=== PATIENT | female | born 1965 | race Caucasian/White ===

== ENCOUNTER 2017-06-29 21:16 | Emergency (ER) | payer MEDICAID ==
[~2017-06-29] VITALS: Ht 157.5 cm; Wt 76.2 kg
[~2017-06-29 21:16] MED LIST: INSU100C5 IJ; INSU100V9 SQ; RISP1TAB27 PO; [UNRECOGNIZED DRUG - CODE] PO
[2017-06-29 21:32] VITALS: BP_SYST 129
[2017-06-29] MEDS: NACL 0.9% 1,000 ML IV ONE (23:53)
[2017-06-29] MEDS: DIPHENHYDRAMINE INJ 50 MG/ML VIAL IVP ONE (23:53)
[2017-06-29] MEDS: PROCHLORPERAZINE EDISYLATE 10 MG/2 ML VIAL IVP ONE (23:54)
[2017-06-29 23:58] LABS: BASOPHILS % (AUTO) 0.5 % (0.0-2.0); EOSINOPHILS # (AUTO) 0.1 K/uL (0.0-0.4); EOSINOPHILS % (AUTO) 0.8 % (0.0-4.0); HEMATOCRIT 45.7 % (36-48); HEMOGLOBIN 14.4 g/dL (12.0-16.0); LYMPHOCYTES # (AUTO) 2.8 K/uL (1.0-5.5); LYMPHOCYTES % (AUTO) 29.8 % (20.5-51.5); MEAN CORPUSCULAR HEMOGLOBIN 28 pg (27-31); MEAN CORPUSCULAR HGB CONC 32 % (32-36); MEAN CORPUSCULAR VOLUME 87 fL (79.0-98.0); MONOCYTES # (AUTO) 0.4 K/uL (0.0-1.0); MONOCYTES % (AUTO) 4.4 % (1.7-9.3); NEUTROPHILS % (AUTO) 64.5 % (40.0-70.0); PLATELET COUNT (AUTO) 212 K/uL (130-430); RED BLOOD CELL COUNT(AUTO) 5.24 MIL/uL (4.2-6.2); RED CELL DISTRIBUTION WIDTH 12.6 % (9.0-15.0); WHITE BLOOD COUNT (AUTO) 9.3 K/uL (4.8-10.8)
[2017-06-30 00:14] LABS: ANION GAP 5 (5-15); CALCIUM 9.5 mg/dL (8.4-11.0); CHLORIDE 102 mmol/L (98-107); CREATININE 0.72 mg/dL (0.55-1.30); GLUCOSE 219 mg/dL (70-99); POTASSIUM 3.8 mmol/L (3.5-5.1); SODIUM SERUM 134 mmol/L (136-145); UREA NITROGEN, BLOOD 9 mg/dL (8-21)
[2017-06-30 00:18] LABS: ALANINE AMINOTRANSFERASE 33 U/L (12-78); ALBUMIN 3.5 g/dL (3.4-4.8); ASPARTATE AMINOTRANSFERASE 17 U/L (10-37); TOTAL BILIRUBIN 0.2 mg/dL (0.0-1.0)
[2017-06-30 00:22] LABS: GFR AFRICAN AMERICAN 110 mL/min (>90)
[2017-06-30 00:27] LABS: ACETONE, SERUM NEGATIVE (NEGATIVE)
[2017-06-30 01:30] VITALS: BP_SYST 122
== END 2017-06-30 01:30 | disposition home or self-care (01) ==
LOC: SED 21:16
DX: R51 Headache (principal); J45.909 Unspecified asthma, uncomplicated; E11.9 Type 2 diabetes mellitus without complications; Z88.0 Allergy status to penicillin
CPT/HCPCS: 36415; 70450; 80053; 82009; 82962; 85025; 96361; 96374; 96375; 99285; J0780; J1200; J7030

== ENCOUNTER 2019-01-28 20:51 | Emergency (ER) | payer MEDICAID ==
[~2019-01-28] VITALS: Ht 162.6 cm; Wt 83.0 kg
[2019-01-28 21:10] VITALS: BP_SYST 164
--- NOTE | 2019-01-28 21:45 | NUR ---
Patient to ER bed 06 to gown for evaluation. Side rails up.
--- NOTE | 2019-01-28 21:50 | NUR ---
ER at bedside examining patient.
--- NOTE | 2019-01-28 21:50 | NUR ---
PT IS AAOX4 AND AMBULATORY. PT IS PRIMARILY LIBYAN SPEAKING BUT CAN UNDERSTAND ICELANDIC. PER PT AND DAUGHTER WHO IS AT BEDSIDE PT HAS BEEN EXPERIERNCING ABD PAINX1 WEEK. PT HAS ALSO BEEN EXPERIENCING CONSTIPATION AND BLOATING AND THOUGHT THAT HER ABD PAIN WAS DUE TO HER CONSTIPATION. PT HAS UNDERGONE NO RELIEF AND NOTICED SWELLING TO HER HANDS. PT +NAUSEA. PT STATES PAIN 10/10 AT THIS TIME. WILL CONTINUE TO MONITOR.
--- NOTE | 2019-01-28 22:00 | NUR ---
# 20 gauge angiocath placed to LFA. Use of asceptic technique. Opsite placed over site. Blood return noted. Blood for lab drawn from site. Flushed with 10 cc of normal saline. No evidence of infiltration noted. Patient tolerated well.
[2019-01-28] MEDS ORDERED: KETOROLAC TROMETHAMINE 30 MG VIAL IM ONE (22:15)
[2019-01-28 22:25] LABS: BILIRUBIN,URINE NEGATIVE (NEGATIVE); BLOOD, URINE 2+ (NEGATIVE); CLARITY/URINE CLEAR (CLEAR); COLOR,URINE YELLOW (YELLOW); GLUCOSE,URINE 2+ (NEGATIVE); KETONES,URINE NEGATIVE (NEGATIVE); LEUKOCYTE ESTERASE ,URINE NEGATIVE (NEGATIVE); NITRITE, URINE NEGATIVE (NEGATIVE); PH,URINE 6.5 (5.0-8.0); PROTEIN URINE 1+ (NEGATIVE); UROBILINOGEN,URINE 0.2 (0.2-1.0)
[2019-01-28 22:31] LABS: BASOPHILS % (AUTO) 0.5 % (0.0-2.0); EOSINOPHILS # (AUTO) 0.2 K/uL (0.0-0.4); EOSINOPHILS % (AUTO) 1.7 % (0.0-4.0); HEMATOCRIT 35.1 % (36-48); HEMOGLOBIN 11.8 g/dL (12.0-16.0); LYMPHOCYTES # (AUTO) 2.3 K/uL (1.0-5.5); LYMPHOCYTES % (AUTO) 24.8 % (20.5-51.5); MEAN CORPUSCULAR HEMOGLOBIN 29 pg (27-31); MEAN CORPUSCULAR HGB CONC 34 % (32-36); MEAN CORPUSCULAR VOLUME 86 fL (79.0-98.0); MONOCYTES # (AUTO) 0.6 K/uL (0.0-1.0); NEUTROPHILS # (AUTO) 6.2 K/uL (1.8-7.7); PLATELET COUNT (AUTO) 251 K/uL (130-430); RED BLOOD CELL COUNT(AUTO) 4.09 MIL/uL (4.2-6.2); RED CELL DISTRIBUTION WIDTH 13.4 % (9.0-15.0); WHITE BLOOD COUNT (AUTO) 9.2 K/uL (4.8-10.8)
[2019-01-28 22:35] LABS: WBC,URINE 0-3 /HPF (0-3)
[2019-01-28 22:36] LABS: BACTERIA,URINE FEW /HPF (None Seen)
[2019-01-28 22:37] LABS: MUCUS,URINE None Seen /LPF (None Seen)
[2019-01-28 22:42] LABS: CALCIUM 9.2 mg/dL (8.4-11.0); CREATININE 1.04 mg/dL (0.55-1.30); POTASSIUM 3.7 mmol/L (3.5-5.1)
[2019-01-28] MEDS ORDERED: KETOROLAC TROMETHAMINE 60 MG/2 ML VIAL IM ONE (22:45)
[2019-01-28] MEDS ORDERED: NACL 0.9% 1,000 ML IV ONE (22:45)
[2019-01-28] MEDS ORDERED: ONDANSETRON HCL 4 MG/2 ML VIAL IVP ONE (22:45)
[2019-01-28 22:47] LABS: ALBUMIN 3.1 g/dL (3.4-4.8); TOTAL BILIRUBIN 0.3 mg/dL (0.0-1.0)
--- NOTE | 2019-01-28 22:50 | NUR ---
30 mg Toradol given IVP per MD orders at this time. No 30 mg Torodol available at this time, 60 mg pulled and only 30 mg administered per MD orders. Will continue to monitor pt.
--- NOTE | 2019-01-28 22:53 | NUR ---
PT TO CT VIA [facility] ACCOMPANIED BY GUITAR TEACHER.
--- NOTE | 2019-01-28 23:00 | NUR ---
PT RETURNED FROM CT VIA [facility] IN STABLE CONDITION.
--- NOTE | 2019-01-28 23:50 | NUR ---
PT RESTING COMFORTABLY IN BED WITH EYES CLOSED. BREATHING IS EVEN AND UNLABORED. FAMILY REMAINS AT BEDSIDE. WILL CONTINUE TO MONITOR PT.
[2019-01-29] MEDS ORDERED: MAG HYDROX/AL HYDROX/SIMETH 30 ML, DICYCLOMINE HCL 20 MG, LIDOCAINE VISCOUS 2% 15ML (PO... PO ONE ×3 (00:45)
[2019-01-29 01:21] VITALS: BP_SYST 159
--- NOTE | 2019-01-29 01:21 | NUR ---
Patient given written and verbal discharge instructions and verbalizes understanding. ER MD discussed with patient the results and treatment provided. Patient in stable condition. ID arm band removed. IV catheter removed intact and dressing applied, no active bleeding. Rx of ZOFRAN, PRILOSEC, BENTYL given. Patient educated on pain management and to follow up with PMD. Pain Scale 0/10. Opportunity for questions provided and answered. Medication side effect fact sheet provided.
== END 2019-01-29 01:21 | disposition home or self-care (01) ==
LOC: SED 20:51
DX: K27.9 Peptic ulcer, site unspecified, unspecified as acute or chronic, without hemorrhage or perforation (principal); R16.0 Hepatomegaly, not elsewhere classified; J45.909 Unspecified asthma, uncomplicated; E11.9 Type 2 diabetes mellitus without complications; Z90.49 Acquired absence of other specified parts of digestive tract; Z90.89 Acquired absence of other organs; Z98.51 Tubal ligation status; Z88.0 Allergy status to penicillin; Z79.899 Other long term (current) drug therapy
CPT/HCPCS: 36415; 74176; 80053; 81000; 83690; 85025; 96374; 96375; 99284; J1885; J2001; J2405; J7030

== ENCOUNTER 2019-04-10 23:40 | Emergency (ER) | payer MEDICAID ==
[~2019-04-10] VITALS: Ht 162.6 cm; Wt 86.2 kg
[2019-04-10 23:58] VITALS: BP_SYST 165
--- NOTE | 2019-04-10 23:58 | NUR ---
Patient to ER bed 06 to gown for evaluation. Side rails up. Report given to ISABELLA Olivas
--- NOTE | 2019-04-11 00:04 | NUR ---
Patient brought in with daughter of lower back pain radiating to shoulders status post slip and fall 1 weeks ago. Patient ambulated to bedside with minimal assistance. Patient has history of DM2 and schizophrenia. Pain 8/. No other complaints/injuries per patient or as noted.
--- NOTE | 2019-04-11 00:19 | NUR ---
ER Dr. Manzano at bedside examining patient.
[2019-04-11] MEDS ORDERED: MORPHINE 2 MG/ML INJ. SYRINGE IM ONE (00:30)
[2019-04-11 01:10] VITALS: BP_SYST 132
--- NOTE | 2019-04-11 01:10 | NUR ---
Patient given written and verbal discharge instructions and verbalizes understanding. ER MD discussed with patient the results and treatment provided. Patient in stable condition. ID arm band removed. Rx of Motrin, Tramadol, and Robaxin given. Patient educated on pain management and to follow up with PMD. Pain Scale 2/10. Opportunity for questions provided and answered. Medication side effect fact sheet provided.
== END 2019-04-11 01:10 | disposition home or self-care (01) ==
LOC: SED 23:40
DX: S22.088A Other fracture of T11-T12 vertebra, initial encounter for closed fracture (principal); R03.0 Elevated blood-pressure reading, without diagnosis of hypertension; J45.909 Unspecified asthma, uncomplicated; E11.9 Type 2 diabetes mellitus without complications; Z90.49 Acquired absence of other specified parts of digestive tract; Z90.89 Acquired absence of other organs; Z90.710 Acquired absence of both cervix and uterus; Z88.0 Allergy status to penicillin; Z79.899 Other long term (current) drug therapy; W01.0XXA Fall on same level from slipping, tripping and stumbling without subsequent striking against object, initial encounter; Y93.89 Activity, other specified; Y92.89 Other specified places as the place of occurrence of the external cause; Y99.8 Other external cause status
CPT/HCPCS: 72100; 81025; 96372; 99283; J2270

== ENCOUNTER 2019-06-15 13:41 | Inpatient (IN) | payer MEDICAID ==
[~2019-06-15] VITALS: Ht 162.6 cm; Wt 90.3 kg
[2019-06-15 13:45] VITALS: BP_SYST 173
[2019-06-15] MEDS ORDERED: INSULIN REGULAR, HUMAN 10 UNITS/0.1 ML INJ SUBCUT ONE (14:00)
[2019-06-15 14:45] LABS: ANION GAP 4 (5-15); CALCIUM 9.4 mg/dL (8.4-11.0); CHLORIDE 93 mmol/L (98-107); CREATININE 1.26 mg/dL (0.55-1.30); POTASSIUM 4.5 mmol/L (3.5-5.1); SODIUM SERUM 128 mmol/L (136-145); UREA NITROGEN, BLOOD 12 mg/dL (8-21)
[2019-06-15 14:51] LABS: ALANINE AMINOTRANSFERASE 41 U/L (12-78); ALBUMIN 3.3 g/dL (3.4-4.8); ASPARTATE AMINOTRANSFERASE 19 U/L (10-37); BASOPHILS % (AUTO) 0.4 % (0.0-2.0); EOSINOPHILS # (AUTO) 0.1 K/uL (0.0-0.4); EOSINOPHILS % (AUTO) 0.7 % (0.0-4.0); HEMATOCRIT 35.9 % (36-48); HEMOGLOBIN 12.4 g/dL (12.0-16.0); LYMPHOCYTES # (AUTO) 1.4 K/uL (1.0-5.5); LYMPHOCYTES % (AUTO) 15.5 % (20.5-51.5); MEAN CORPUSCULAR HEMOGLOBIN 30 pg (27-31); MEAN CORPUSCULAR HGB CONC 34 % (32-36); MEAN CORPUSCULAR VOLUME 86 fL (79.0-98.0); MONOCYTES # (AUTO) 0.5 K/uL (0.0-1.0); MONOCYTES % (AUTO) 4.9 % (1.7-9.3); NEUTROPHILS # (AUTO) 7.3 K/uL (1.8-7.7); NEUTROPHILS % (AUTO) 78.5 % (40.0-70.0); PLATELET COUNT (AUTO) 191 K/uL (130-430); TOTAL BILIRUBIN 0.4 mg/dL (0.0-1.0); WHITE BLOOD COUNT (AUTO) 9.3 K/uL (4.8-10.8)
[2019-06-15 14:52] LABS: PROTHROMBIN TIME 9.9 SECS (9.5-12.5)
[2019-06-15 14:58] LABS: GFR AFRICAN AMERICAN 57 mL/min (>90); GLUCOSE 444 mg/dL (70-99)
[2019-06-15 15:42] LABS: ACETONE, SERUM NEGATIVE (NEGATIVE)
[2019-06-15] MEDS ORDERED: ASPIRIN 325 MG TABLET PO ONE (16:45)
[2019-06-15] MEDS ORDERED: HYDROcodone/ACETAMIN 7.5-325 MG TAB PO ONE (17:45)
[2019-06-15 18:30] VITALS: BP_SYST 159
[2019-06-15] MEDS: INSULIN REGULAR, HUMAN 100 UNITS/ML, 10 ML VIAL (humuLIN R) SUBCUT PRN ×2 (19:03→21:13)
[2019-06-15 20:00] VITALS: BP_SYST 159
[2019-06-15 20:15] VITALS: BP_SYST 140
[2019-06-15 20:32] VITALS: BP_SYST 140
[2019-06-15] MEDS: LISINOPRIL 10 MG TABLET (PRINIVIL) PO SCH (22:00)
[2019-06-15] MEDS ORDERED: cloNIDine HCL 0.1 MG TABLET PO PRN (22:00)
[2019-06-15] MEDS: risperiDONE 1 MG TABLET (RisperDAL) PO SCH (22:00)
[2019-06-16 00:19] VITALS: BP_SYST 154
[2019-06-16] MEDS: INSULIN REGULAR, HUMAN 100 UNITS/ML, 10 ML VIAL (humuLIN R) SUBCUT PRN ×4 (06:33→21:11)
[2019-06-16 06:51] LABS: CALCIUM 8.5 mg/dL (8.4-11.0); POTASSIUM 3.8 mmol/L (3.5-5.1)
[2019-06-16 06:52] LABS: CREATININE 1.35 mg/dL (0.55-1.30); PHOSPHORUS 5.3 mg/dL (2.7-4.5)
[2019-06-16] MEDS: traMADol HCL HCL 50 MG TABLET (ULTRAM) PO PRN ×3 (08:41→21:13)
[2019-06-16] MEDS: risperiDONE 1 MG TABLET (RisperDAL) PO SCH (08:41)
[2019-06-16] MEDS: LISINOPRIL 10 MG TABLET (PRINIVIL) PO SCH (08:42)
[2019-06-16] MEDS ORDERED: ASPIRIN 81 MG TAB.CHEW PO SCH (09:00)
[2019-06-16] MEDS ORDERED: KETOROLAC TROMETHAMINE 10 MG TABLET (TORADOL) PO SCH (09:00)
[2019-06-16 11:20] VITALS: BP_SYST 134
[2019-06-16 15:02] VITALS: BP_SYST 150
[2019-06-16 15:25] VITALS: BP_SYST 134
[2019-06-16 15:29] VITALS: BP_SYST 134
[2019-06-16 19:00] VITALS: BP_SYST 142
[2019-06-16] MEDS ORDERED: traZODone HCL 50 MG TABLET (DESYREL) PO PRN (20:00)
[2019-06-16] MEDS ORDERED: INSULIN GLARGINE 100 UNITS/ML 10 ML VIAL SQ SCH (21:00)
[2019-06-16] MEDS ORDERED: HALOPERIDOL 5 MG TABLET (HALDOL) PO ONE (21:00)
[2019-06-16] MEDS ORDERED: ENOXAPARIN SODIUM 40 MG/0.4 ML SYRINGE SUBCUT SCH (21:00)
[2019-06-17] MEDS ORDERED: GABAPENTIN 300 MG CAPSULE PO ONE (09:00)
== END 2019-06-17 00:10 | disposition left against medical advice (07) | DRG 47 ==
LOC: SED 13:41 → STU 16:55
PROVIDERS: ADMIT Family Medicine; ATTEND Family Medicine
DX: G45.9 Transient cerebral ischemic attack, unspecified (principal); E44.1 Mild protein-calorie malnutrition; E87.1 Hypo-osmolality and hyponatremia; E11.9 Type 2 diabetes mellitus without complications; F17.200 Nicotine dependence, unspecified, uncomplicated; I10 Essential (primary) hypertension; Z53.29 Procedure and treatment not carried out because of patient's decision for other reasons; F32.9 Major depressive disorder, single episode, unspecified; G89.29 Other chronic pain; M54.9 Dorsalgia, unspecified; Z88.0 Allergy status to penicillin; Z79.899 Other long term (current) drug therapy
CPT/HCPCS: 36415; 70450-TC; 71045; 80048; 80053; 80061; 82009-TC; 82962; 83735-TC; 83880; 84100-TC; 84484; 85025; 85610-TC; 85730-TC; 93005; 93880; 96372; 96379; 99285; G0378; J1650; J1815